=== PATIENT | female | born 1940 | race Caucasian/White ===

== ENCOUNTER 2018-06-20 06:38 | Emergency (ER) | payer MEDICARE, BC ==
--- NOTE | 2018-06-20 07:27 | EDM.PDOC ---
ED HPI GENERAL MEDICAL PROBLEM - General Chief Complaint: General Stated Complaint: DIZZY, HIGH BP Time Seen by Provider: 06/20/18 08:12 Source of Information: Reports: Patient History Limitations: Reports: No Limitations - History of Present Illness INITIAL COMMENTS - FREE TEXT/NARRATIVE: pt arrived with a history of feeling off bslance. She felt like she was going to fall. She did vomit after she got to the hosp. She did not have chest pain. She checked her bp at home and it was in the 190 range. She does have a history of hypertension. She had a urgent softer stool during the episode. She not have chills or a fever. She does have a past history of vertigo and this was not as extreme as that. Onset: Today, Sudden Duration: Hour(s): Location: Reports: Head Associated Symptoms: Reports: Weakness, Other (dizziness. ) - Related Data Allergies Allergy/AdvReac Type Severity Reaction Status Date / Time latex Allergy Rash Verified 06/20/18 07:36 levofloxacin [From Levaquin] Allergy Hives Verified 06/20/18 07:36 sulfamethoxazole Allergy Cannot Verified 06/20/18 07:36 [From Bactrim] Remember trimethoprim [From Bactrim] Allergy Cannot Verified 06/20/18 07:36 Remember Home Meds: Home Meds Losartan Potassium [Cozaar] 100 mg PO DAILY 11/30/13 [History] Rosuvastatin Calcium [Crestor] 5 mg PO BEDTIME 11/30/13 [History] metFORMIN HCl [Metformin HCl] 1,000 mg PO BID 11/30/13 [History] metroNIDAZOLE [metroNIDAZOLE 0.75% Cream] 1 dose TOP BID 11/30/13 [History] Aspirin 81 mg PO DAILY 06/20/18 [History] Atenolol 50 mg PO BID 06/20/18 [History] Levothyroxine 112 mcg PO DAILY 06/20/18 [History] Nystatin 100,000 dose PO QID 06/20/18 [History] Timolol [Betimol 0.5% Ophth Soln] 1 ampule EYEBOTH ASDIRECTED 06/20/18 [History] Triamcinolone Acetonide [Triamcinolone Acetonide 0.1% Crm] 1 applic TOP BID [History] ED ROS GENERAL - Review of Systems Review Of Systems: See Below Constitutional: Reports: No Symptoms HEENT: Reports: No Symptoms Respiratory: Reports: No Symptoms Cardiovascular: Reports: Other (pt did not have chest pain. She felt like her heartbeat was weak. ) Endocrine: Reports: No Symptoms GI/Abdominal: Reports: Nausea, Vomiting : Reports: No Symptoms Musculoskeletal: Reports: No Symptoms Skin: Reports: No Symptoms ED EXAM, GENERAL - Physical Exam Exam: See Below Free Text/Narrative:: pt is a very anxious pt who was feeluing dizzy and her bp is quite elevated. Exam Limited By: No Limitations General Appearance: Alert, No Apparent Distress, Anxious, Other (pupils are equal and reactive. ) Ears: Normal TMs Nose: Normal Inspection Throat/Mouth: Normal Inspection Head: Atraumatic Neck: Normal Inspection Respiratory/Chest: No Respiratory Distress Cardiovascular: Regular Rate, Rhythm, Other (rate is 60. ) GI/Abdominal: Soft, Non-Tender (Female) Exam: Deferred Rectal (Female) Exam: Deferred Back Exam: Normal Inspection Extremities: Normal Inspection Neurological: Alert, Oriented, Normal Cognition, Other (no lateralizing signs. ) Psychiatric: Anxious Course - Vital Signs Last Recorded V/S: Last Vital Signs Temp 35.8 C 06/20/18 07:33 Pulse 60 06/20/18 08:31 Resp 14 06/20/18 08:31 BP 166/69 H 06/20/18 08:31 Pulse Ox 97 06/20/18 08:31 - Orders/Labs/Meds Orders: Active Orders 24 hr Category Date Time Status EKG Documentation Completion [RC] ASDIRECTED Care 06/20/18 08:29 Ordered Sodium Chloride 0.9% [Normal Saline] 1,000 ml Med 06/20/18 08:15 Active IV ASDIRECTED EKG 12 Lead [EK] Routine Ther 06/20/18 08:29 Ordered Medication Orders Sodium Chloride (Normal Saline) 1,000 mls @ 999 mls/hr IV ASDIRECTED AVE Labs: Laboratory Tests 06/20/18 06/20/18 06/20/18 Range/Units 07:48 07:49 07:49 WBC 7.7 (4.5-11.0) K/uL RBC 4.76 (3.30-5.50) M/uL Hgb 13.6 (12.0-15.0) g/dL Hct 40.8 (36.0-48.0) % MCV 86 (80-98) fL MCH 29 (27-31) pg MCHC 33 (32-36) % Plt Count 180 (150-400) K/uL Neut % (Auto) 77 H (36-66) % Lymph % (Auto) 15 L (24-44) % [place] % (Auto) 6 (2-6) % Eos % (Auto) 1 L (2-4) % Baso % (Auto) 1 (0-1) % Sodium (140-148) mmol/L Potassium (3.6-5.2) mmol/L Chloride (100-108) mmol/L Carbon Dioxide (21-32) mmol/L Anion Gap (5.0-14.0) mmol/L BUN (7-18) mg/dL Creatinine (0.6-1.0) mg/dL Est Cr Clr Drug Dosing mL/min Estimated GFR (MDRD) (>60) Glucose (74-106) mg/dL Calcium (8.5-10.1) mg/dL Total Bilirubin (0.2-1.0) mg/dL AST (15-37) U/L ALT (12-78) U/L Alkaline Phosphatase (46-116) U/L Troponin I (0.000-0.056) ng/mL Total Protein (6.4-8.2) g/dL Albumin (3.4-5.0) g/dL Globulin (2.3-3.5) g/dL Albumin/Globulin Ratio (1.2-2.2) TSH, Ultra Sensitive 2.408 (0.358-3.740) uIU/mL Urine Color Yellow Urine Appearance Slightly cloudy Urine pH 8.0 (4.5-8.0) Ur Specific [place] 1.015 (1.008-1.030) Urine Protein Negative (NEGATIVE) mg/dL Urine Glucose (UA) 50 H (NEGATIVE) mg/dL Urine Ketones Negative (NEGATIVE) mg/dL Urine Occult Blood Negative (NEGATIVE) Urine Nitrite Negative (NEGATIVE) Urine Bilirubin Negative (NEGATIVE) Urine Urobilinogen Normal (NORMAL) mg/dL Ur Leukocyte Esterase Negative (NEGATIVE) Urine RBC Not seen (0-5) Urine WBC Not seen (0-5) Ur Epithelial Cells Not seen Amorphous Sediment Moderate Urine Bacteria Not seen Urine Mucus Not seen 06/20/18 06/20/18 Range/Units 07:49 08:29 WBC (4.5-11.0) K/uL RBC (3.30-5.50) M/uL Hgb (12.0-15.0) g/dL Hct (36.0-48.0) % MCV (80-98) fL MCH (27-31) pg MCHC (32-36) % Plt Count (150-400) K/uL Neut % (Auto) (36-66) % Lymph % (Auto) (24-44) % [place] % (Auto) (2-6) % Eos % (Auto) (2-4) % Baso % (Auto) (0-1) % Sodium 133 L (140-148) mmol/L Potassium 4.3 (3.6-5.2) mmol/L Chloride 98 L (100-108) mmol/L Carbon Dioxide 26 (21-32) mmol/L Anion Gap 13.3 (5.0-14.0) mmol/L BUN 12 (7-18) mg/dL Creatinine 1.0 (0.6-1.0) mg/dL Est Cr Clr Drug Dosing 38.72 mL/min Estimated GFR (MDRD) 54 L (>60) Glucose 196 H (74-106) mg/dL Calcium 9.0 (8.5-10.1) mg/dL Total Bilirubin 0.4 (0.2-1.0) mg/dL AST 18 (15-37) U/L ALT 18 (12-78) U/L Alkaline Phosphatase 65 (46-116) U/L Troponin I < 0.017 (0.000-0.056) ng/mL Total Protein 7.2 (6.4-8.2) g/dL Albumin 3.8 (3.4-5.0) g/dL Globulin 3.4 (2.3-3.5) g/dL Albumin/Globulin Ratio 1.1 L (1.2-2.2) TSH, Ultra Sensitive (0.358-3.740) uIU/mL Urine Color Urine Appearance Urine pH (4.5-8.0) Ur Specific [place] (1.008-1.030) Urine Protein (NEGATIVE) mg/dL Urine Glucose (UA) (NEGATIVE) mg/dL Urine Ketones (NEGATIVE) mg/dL Urine Occult Blood (NEGATIVE) Urine Nitrite (NEGATIVE) Urine Bilirubin (NEGATIVE) Urine Urobilinogen (NORMAL) mg/dL Ur Leukocyte Esterase (NEGATIVE) Urine RBC (0-5) Urine WBC (0-5) Ur Epithelial Cells Amorphous Sediment Urine Bacteria Urine Mucus Meds: Medications Generic Name Dose Route Start Last Admin Trade Name Margaret PRN Reason Stop Dose Admin Sodium Chloride 1,000 mls @ 999 mls/hr 06/20/18 08:[address] Sal[address] IV [address] A[address] Discontinued Medications Generic Name Dose Route Start Last Admin Trade Name Margaret PRN Reason Stop Dose Admin Meclizine HCl 25 mg 06/20/18 08:10 06/20/18 08:30 Antivert PO 06/20/18 08:11 25 mg ONETIME ONE Administration Ondansetron HCl 4 mg 06/20/18 08:10 06/20/18 08:30 Zofran IVPUSH 06/20/18 08:11 Not Given ONETIME ONE - Re-Assessments/Exams Free Text/Narrative Re-Assessment/Exam: 06/20/18 09:14 ekg and trop was normal. Her other lab was normal other than a elevated bs. Departure - Departure Time of Disposition: 09:09 Disposition: Home, Self-Care 01 Condition: Fair Clinical Impression: Vertigo, Hypertension - Discharge Information Referrals: Ellis Becerra MD [Primary Care Provider] - Forms: ED Department Discharge Care Plan Goals: continue same meds, push fluids, low activity for the next 2 days. - My Orders Last 24 Hours: My Active Orders 06/20/18 08:15 Sodium Chloride 0.9% [Normal Saline] 1,000 ml IV ASDIRECTED 06/20/18 08:29 EKG Documentation Completion [RC] ASDIRECTED EKG 12 Lead [EK] Routine - Assessment/Plan Last 24 Hours: My Active Orders 06/20/18 08:15 Sodium Chloride 0.9% [Normal Saline] 1,000 ml IV ASDIRECTED 06/20/18 08:29 EKG Documentation Completion [RC] ASDIRECTED EKG 12 Lead [EK] Routine
[2018-06-20] MEDS ORDERED: Ondansetron 4 MG/2 ML SDV IVPUSH ONE (08:10)
[2018-06-20] MEDS ORDERED: Meclizine 25 MG Tab PO ONE (08:10)
[2018-06-20] MEDS ORDERED: Sodium Chloride 0.9% 1,000 ML IV SCH (08:15)
[2018-06-20 09:17] VITALS: BP 164/67
== END 2018-06-20 09:43 | disposition home or self-care (01) ==
LOC: JP.ED 06:38
DX: I10 Essential (primary) hypertension (principal); Z88.1 Allergy status to other antibiotic agents; Z88.2 Allergy status to sulfonamides; Z91.040 Latex allergy status; Z88.8 Allergy status to other drugs, medicaments and biological substances
CPT/HCPCS: 36415; 80053; 81001; 84443; 84484; 85025; 93005; 93010; 99284; A9270

== ENCOUNTER 2020-05-14 23:25 | Observation (INO) | payer MEDICARE, BC ==
[2020-05-14] MEDS ORDERED: Diltiazem 100 MG in Sodium Chloride 0.9% 100 ML IV SCH (23:45)
[2020-05-14] MEDS ORDERED: Diltiazem 25 MG/5 ML SDV IVPUSH ONE (23:58)
--- NOTE | 2020-05-15 00:02 | EDM.PDOC ---
ED HPI GENERAL MEDICAL PROBLEM - General Chief Complaint: Cardiovascular Problem Stated Complaint: A-FIB? Time Seen by Provider: 05/14/20 23:46 Source of Information: Reports: Patient, Family, RN Notes Reviewed History Limitations: Reports: No Limitations - History of Present Illness INITIAL COMMENTS - FREE TEXT/NARRATIVE: 80-year-old female presents emergency department with a complaint of palpitations, she is confident her palpitations started about 1 hour prior to presentation emergency department it woke her from sleep. Does have a known history of paroxysmal atrial fibrillation usually controlled with medications. Last episode was in 2013 she is never been cardioverted electrically but was chemically cardioverted at that time. She does not take a blood thinner other than aspirin the initial insult of the atrial fibrillation was thought to be related to hyperthyroidism. She denies any nausea vomiting shortness of breath chest pain no diaphoresis - Related Data Allergies Allergy/AdvReac Type Severity Reaction Status Date / Time latex Allergy Rash Verified 05/14/20 23:38 levofloxacin [From Levaquin] Allergy Hives Verified 05/14/20 23:38 sulfamethoxazole Allergy Cannot Verified 05/14/20 23:38 [From Bactrim] Remember trimethoprim [From Bactrim] Allergy Cannot Verified 05/14/20 23:38 Remember Home Meds: Home Meds Losartan Potassium [Cozaar] 100 mg PO DAILY 11/30/13 [History] Rosuvastatin Calcium [Crestor] 5 mg PO BEDTIME 11/30/13 [History] metFORMIN HCl [Metformin HCl] 1,000 mg PO BID 11/30/13 [History] metroNIDAZOLE [metroNIDAZOLE 0.75% Cream] 1 dose TOP BID 11/30/13 [History] Aspirin 81 mg PO DAILY 06/20/18 [History] Levothyroxine 112 mcg PO DAILY 06/20/18 [History] Nystatin 100,000 dose PO QID 06/20/18 [History] Timolol [Betimol 0.5% Ophth Soln] 1 ampule EYEBOTH ASDIRECTED 06/20/18 [History] atenoloL [Atenolol] 50 mg PO BID 06/20/18 [History] Past Medical History HEENT History: Reports: Cataract, Impaired Vision Cardiovascular History: Reports: Afib, High Cholesterol, Hypertension Gastrointestinal History: Reports: Other (See Below) Other Gastrointestinal History: H pylori Musculoskeletal History: Reports: Arthritis, Fracture Psychiatric History: Reports: Anxiety Endocrine/Metabolic History: Reports: Diabetes, Type II, Hypothyroidism, Other (See Below) Other Endocrine/Metabolic History: 05/12/2017 A1C 6.6 Dermatologic History: Reports: Other (See Below) Other Dermatologic History: rosacea - Infectious Disease History Infectious Disease History: Reports: C-Difficile, Measles, Mumps - Past Surgical History GI Surgical History: Reports: Appendectomy Endocrine Surgical History: Reports: Thyroidectomy Social & Family History - Tobacco Use Tobacco Use Status *Q: Never Tobacco User - Caffeine Use Caffeine Use: Reports: Coffee, Soda - Recreational Drug Use Recreational Drug Use: No ED ROS GENERAL - Review of Systems Review Of Systems: See Below Constitutional: Reports: No Symptoms HEENT: Reports: No Symptoms Respiratory: Reports: No Symptoms Cardiovascular: Reports: Palpitations GI/Abdominal: Reports: No Symptoms ED EXAM, GENERAL - Physical Exam Exam: See Below Exam Limited By: No Limitations General Appearance: Alert, WD/WN, No Apparent Distress Respiratory/Chest: No Respiratory Distress, Lungs Clear, Normal Breath Sounds, No Accessory Muscle Use, Chest Non-Tender Cardiovascular: Irregularly Irregular GI/Abdominal: Soft, Non-Tender Course - Vital Signs Last Recorded V/S: Last Vital Signs Temp 97.3 F 05/14/20 23:36 Pulse 70 05/15/20 00:56 Resp 18 05/14/20 23:36 BP 124/67 05/15/20 00:56 Pulse Ox 100 05/14/20 23:36 - Orders/Labs/Meds Orders: Active Orders 24 hr Category Date Time Status Cardiac Monitoring [RC] .As Directed Care 05/14/20 23:57 Active EKG Documentation Completion [RC] ASDIRECTED Care 05/14/20 23:58 Active Peripheral IV Care [RC] . DIRECTED Care 05/14/20 23:58 Active Diltiazem [Cardizem] 100 mg Med 05/14/20 23:45 Active Sodium Chloride 0.9% [Normal Saline] 100 ml IV TITRATE Sodium Chloride 0.9% [Saline Flush] Med 05/14/20 23:57 Active 10 ml FLUSH ASDIRECTED PRN Peripheral IV Insertion Adult [OM.PC] Stat Oth 05/14/20 23:57 Ordered Saline Lock Insert [OM.PC] Stat Oth 05/14/20 23:57 Ordered EKG 12 Lead [EK] Stat Ther 05/14/20 23:57 Ordered Medication Orders Diltiazem HCl 100 mg/ Sodium (Chloride) 100 mls @ 5 mls/hr IV TITRATE AVE; Protocol Last Admin: 05/15/20 00:42 Dose: 5 mg/hr, 5 mls/hr Documented by: ITA Sodium Chloride (Sodium Chloride 0.9% 10 Ml Syringe) 10 ml FLUSH ASDIRECTED PRN PRN Reason: Keep Vein Open Last Admin: 05/15/20 00:08 Dose: 10 ml Documented by: ITA Labs: Laboratory Tests 05/14/20 05/14/20 05/14/20 Range/Units 00:05 00:05 00:05 WBC 7.2 (4.5-11.0) K/uL RBC 5.08 (3.30-5.50) M/uL Hgb 14.4 (12.0-15.0) g/dL Hct 43.7 (36.0-48.0) % MCV 86 (80-98) fL MCH 28 (27-31) pg MCHC 33 (32-36) % Plt Count 194 (150-400) K/uL Neut % (Auto) 51 (36-66) % Lymph % (Auto) 38 (24-44) % [place] % (Auto) 9 H (2-6) % Eos % (Auto) 2 (2-4) % Baso % (Auto) 1 (0-1) % Sodium 136 L (140-148) mmol/L Potassium 3.7 (3.6-5.2) mmol/L Chloride 97 L (100-108) mmol/L Carbon Dioxide 26 (21-32) mmol/L Anion Gap 16.7 H (5.0-14.0) mmol/L BUN 13 (7-18) mg/dL Creatinine 1.0 (0.6-1.0) mg/dL Est Cr Clr Drug Dosing 38.35 mL/min Estimated GFR (MDRD) 54 L (>60) Glucose 123 H (74-106) mg/dL Calcium 9.4 (8.5-10.1) mg/dL Total Bilirubin 0.3 (0.2-1.0) mg/dL AST 17 (15-37) U/L ALT 19 (12-78) U/L Alkaline Phosphatase 64 (46-116) U/L Troponin I < 0.017 (0.000-0.056) ng/mL Total Protein 7.4 (6.4-8.2) g/dL Albumin 4.2 (3.4-5.0) g/dL Globulin 3.2 (2.3-3.5) g/dL Albumin/Globulin Ratio 1.3 (1.2-2.2) TSH, Ultra Sensitive 8.194 H (0.358-3.740) uIU/mL Meds: Medications Generic Name Dose Route Start Last Admin Trade Name Freq PRN Reason Stop Dose Admin Diltiazem HCl 100 mg/ Sodium 100 mls @ 5 mls/hr 05/14/20 23:45 05/15/20 00:42 Chloride IV 5 mg/hr TITRATE AVE 5 mls/hr Administration Protocol 5 MG/HR Sodium Chloride 10 ml 05/14/20 23:57 05/15/20 00:08 Sodium Chloride 0.9% 10 Ml Syringe FLUSH 10 ml ASDIRECTED PRN Administration Keep Vein Open Discontinued Medications Generic Name Dose Route Start Last Admin Trade Name Freq PRN Reason Stop Dose Admin Diltiazem HCl 16 mg 05/14/20 23:58 05/15/20 00:08 Diltiazem 25 Mg/5 Ml Sdv IVPUSH 05/14/20 23:59 16 mg ONETIME ONE Administration Departure - Departure Time of Disposition: 01:46 Disposition: Admitted As Inpatient 68 Condition: Fair Clinical Impression: Atrial fibrillation Qualifiers: Atrial fibrillation type: paroxysmal Qualified Code(s): I48.0 - Paroxysmal atrial fibrillation Referrals: Ellis Becerra MD [Primary Care Provider] - Forms: ED Department Discharge Sepsis Event Note (ED) - Evaluation Sepsis Screening Result: No Definite Risk - Focused Exam Vital Signs: Vital Signs Temp Pulse Resp BP Pulse Ox 05/15/20 00:56 70 124/67 05/15/20 00:33 68 132/74 05/15/20 00:23 92 119/74 05/15/20 00:19 77 128/57 L 05/15/20 00:14 70 98/60 05/15/20 00:11 114 H 178/91 H 05/14/20 23:36 97.3 F 103 H 18 179/86 H 100 - My Orders Last 24 Hours: My Active Orders 05/14/20 23:45 Diltiazem [Cardizem] 100 mg Sodium Chloride 0.9% [Normal Saline] 100 ml IV TITRATE 05/14/20 23:57 Cardiac Monitoring [RC] .As Directed Sodium Chloride 0.9% [Saline Flush] 10 ml FLUSH ASDIRECTED PRN Peripheral IV Insertion Adult [OM.PC] Stat Saline Lock Insert [OM.PC] Stat EKG 12 Lead [EK] Stat 05/14/20 23:58 EKG Documentation Completion [RC] ASDIRECTED Peripheral IV Care [RC] . DIRECTED - Assessment/Plan Last 24 Hours: My Active Orders 05/14/20 23:45 Diltiazem [Cardizem] 100 mg Sodium Chloride 0.9% [Normal Saline] 100 ml IV TITRATE 05/14/20 23:57 Cardiac Monitoring [RC] .As Directed Sodium Chloride 0.9% [Saline Flush] 10 ml FLUSH ASDIRECTED PRN Peripheral IV Insertion Adult [OM.PC] Stat Saline Lock Insert [OM.PC] Stat EKG 12 Lead [EK] Stat 05/14/20 23:58 EKG Documentation Completion [RC] ASDIRECTED Peripheral IV Care [RC] . DIRECTED Plan: Assessment Acuity = acute Site and laterality = paroxysmal atrial fibrillation Etiology = unknown Manifestations = palpitations Location of injury = Home Lab values = CBC CMP troponin within normal limits TSH is elevated at 8.194 consistent with hypothyroidism of suboptimal control Plan Did try Cardizem push with drip in the emergency department this did slow her rate down to 110 or less she still will fluctuate down to 16 still remains in atrial fibrillation. I offered her electrocardioversion because of the recent onset of the atrial fibrillation at 2300 on 05-14, she declined. I did contact hospitalist service at 145 kindly agreed to come and evaluate the patient emergency department for admission. Her [id number] 2 score is 5 she would be a candidate for anticoagulation due to her high risk of stroke This note was dictated using [employer] voice recognition software please call with any questions on syntax or grammar.
[2020-05-15] MEDS: Sodium Chloride 0.9% 10 ML Syringe FLUSH PRN ×2 (00:08→03:30)
--- NOTE | 2020-05-15 02:52 | PCM.HP.2 ---
H&P History of Present Illness - General Date of Service: 05/15/20 Admit Problem/Dx: Admission Diagnosis/Problem Admission Diagnosis/Problem Paroxysmal atrial fibrillation with rapid ventricular response Source of Information: Patient, Provider History Limitations: Reports: No Limitations - History of Present Illness Initial Comments - Free Text/Narative: CC: I'm in afib HPI: Lady presents to the emergency room today with palpitations that started around 11 PM on May 14. She has been feeling well recently with no recent difficulties. Tonight after going to bed she woke up with a sensation that her heart was beating fast and beating irregularly. There was no associated chest pain, shortness of breath, nausea or diaphoresis. This felt very similar to her previous episode of atrial fibrillation so she came in for evaluation. She has not had recent cough or shortness of breath. No recent fevers or chills. Appetite and weight have been stable. No recent diarrhea. She walks 1 to 1.5 miles daily and does not have any limitations such as dyspnea or chest pain. She is not taking any new medications. Her last episode of atrial fibrillation was about 6 years ago. Work-up in the emergency room revealed atrial fibrillation with a rapid ventricular response. Laboratory studies are unremarkable. EKG does not show ischemia. She has been started on a diltiazem infusion and the plan is observation admission for further management. - Related Data Allergies/Adverse Reactions: Allergies Allergy/AdvReac Type Severity Reaction Status Date / Time latex Allergy Rash Verified 05/14/20 23:38 levofloxacin [From Levaquin] Allergy Hives Verified 05/14/20 23:38 sulfamethoxazole Allergy Cannot Verified 05/14/20 23:38 [From Bactrim] Remember trimethoprim [From Bactrim] Allergy Cannot Verified 05/14/20 23:38 Remember Home Medications: Home Meds Losartan Potassium [Cozaar] 100 mg PO DAILY 11/30/13 [History] Rosuvastatin Calcium [Crestor] 5 mg PO BEDTIME 11/30/13 [History] metFORMIN HCl [Metformin HCl] 1,000 mg PO BID 11/30/13 [History] metroNIDAZOLE [metroNIDAZOLE 0.75% Cream] 1 dose TOP BID 11/30/13 [History] Aspirin 81 mg PO DAILY 06/20/18 [History] Levothyroxine 112 mcg PO DAILY 06/20/18 [History] Nystatin 100,000 dose PO QID 06/20/18 [History] Timolol [Betimol 0.5% Ophth Soln] 1 ampule EYEBOTH ASDIRECTED 06/20/18 [History] atenoloL [Atenolol] 50 mg PO BID 06/20/18 [History] Past Medical History HEENT History: Reports: Cataract, Impaired Vision Cardiovascular History: Reports: Afib, High Cholesterol, Hypertension Gastrointestinal History: Reports: Other (See Below) Other Gastrointestinal History: H pylori Musculoskeletal History: Reports: Arthritis, Fracture Psychiatric History: Reports: Anxiety Endocrine/Metabolic History: Reports: Diabetes, Type II, Hypothyroidism, Other (See Below) Other Endocrine/Metabolic History: 05/12/2017 A1C 6.6 Dermatologic History: Reports: Other (See Below) Other Dermatologic History: rosacea - Infectious Disease History Infectious Disease History: Reports: C-Difficile, Measles, Mumps - Past Surgical History GI Surgical History: Reports: Appendectomy Endocrine Surgical History: Reports: Thyroidectomy Social & Family History - Family History Endocrine/Metabolic: Reports: Diabetes, type II - Tobacco Use Tobacco Use Status *Q: Never Tobacco User - Caffeine Use Caffeine Use: Reports: Coffee, Soda - Recreational Drug Use Recreational Drug Use: No H&P Review of Systems - Review of Systems: Review Of Systems: See Below Free Text/Narrative: A complete 12 point review of systems was obtained. Pertinent positives and negatives are noted in the history of present illness. All other systems were reviewed and were negative except as noted. Exam - Exam Exam: See Below - Vital Signs Vital Signs: Last Vital Signs Temp 36.3 C 05/14/20 23:36 Pulse 64 05/15/20 02:37 Resp 16 05/15/20 02:37 BP 141/81 H 05/15/20 02:37 Pulse Ox 100 05/15/20 02:37 Weight: 64.41 kg - Exam Quality Assessment: No: Supplemental Oxygen General: Alert, Oriented, Cooperative. No: Mild Distress HEENT: Conjunctiva Clear, Mucosa Moist & [place]. No: Scleral Icterus Neck: Supple, Trachea Midline Lungs: Clear to Auscultation, Normal Respiratory Effort Cardiovascular: Regular Rate, Irregular Rhythm. No: Systolic Murmur, Gallop/S3 GI/Abdominal Exam: Normal Bowel Sounds, Soft, Non-Tender, No Distention Back Exam: Normal Inspection, Full Range of Motion Extremities: No Pedal Edema. No: Increased Warmth Peripheral Pulses: 2+: Dorsalis Pedis (L), Dorsalis Pedis (R) Skin: Warm, Dry Neuro Extensive - Mental Status: Alert, Oriented x3, Nl Response to Commands Neuro Extensive - Motor, Sensory, Reflexes: No: Dysarthria, Abnormal Motor, Tremor Psychiatric: Alert, Normal Affect - Patient Data Lab Results Last 24 hrs: Laboratory Results - last 24 hr 05/14/20 05/14/20 05/14/20 Range/Units 00:05 00:05 00:05 WBC 7.2 (4.5-11.0) K/uL RBC 5.08 (3.30-5.50) M/uL Hgb 14.4 (12.0-15.0) g/dL Hct 43.7 (36.0-48.0) % MCV 86 (80-98) fL MCH 28 (27-31) pg MCHC 33 (32-36) % Plt Count 194 (150-400) K/uL Neut % (Auto) 51 (36-66) % Lymph % (Auto) 38 (24-44) % [place]auf[place] % (Auto) 9 H (2-6) % Eos % (Auto) 2 (2-4) % Baso % (Auto) 1 (0-1) % Sodium 136 L (140-148) mmol/L Potassium 3.7 (3.6-5.2) mmol/L Chloride 97 L (100-108) mmol/L Carbon Dioxide 26 (21-32) mmol/L Anion Gap 16.7 H (5.0-14.0) mmol/L BUN 13 (7-18) mg/dL Creatinine 1.0 (0.6-1.0) mg/dL Est Cr Clr Drug Dosing 38.35 mL/min Estimated GFR (MDRD) 54 L (>60) Glucose 123 H (74-106) mg/dL Calcium 9.4 (8.5-10.1) mg/dL Total Bilirubin 0.3 (0.2-1.0) mg/dL AST 17 (15-37) U/L ALT 19 (12-78) U/L Alkaline Phosphatase 64 (46-116) U/L Troponin I < 0.017 (0.000-0.056) ng/mL Total Protein 7.4 (6.4-8.2) g/dL Albumin 4.2 (3.4-5.0) g/dL Globulin 3.2 (2.3-3.5) g/dL Albumin/Globulin Ratio 1.3 (1.2-2.2) Free T4 (0.76-1.46) ng/dL TSH, Ultra Sensitive 8.194 H (0.358-3.740) uIU/mL 05/15/20 Range/Units 02:12 WBC (4.5-11.0) K/uL RBC (3.30-5.50) M/uL Hgb (12.0-15.0) g/dL Hct (36.0-48.0) % MCV (80-98) fL MCH (27-31) pg MCHC (32-36) % Plt Count (150-400) K/uL Neut % (Auto) (36-66) % Lymph % (Auto) (24-44) % [place] % (Auto) (2-6) % Eos % (Auto) (2-4) % Baso % (Auto) (0-1) % Sodium (140-148) mmol/L Potassium (3.6-5.2) mmol/L Chloride (100-108) mmol/L Carbon Dioxide (21-32) mmol/L Anion Gap (5.0-14.0) mmol/L BUN (7-18) mg/dL Creatinine (0.6-1.0) mg/dL Est Cr Clr Drug Dosing mL/min Estimated GFR (MDRD) (>60) Glucose (74-106) mg/dL Calcium (8.5-10.1) mg/dL Total Bilirubin (0.2-1.0) mg/dL AST (15-37) U/L ALT (12-78) U/L Alkaline Phosphatase (46-116) U/L Troponin I (0.000-0.056) ng/mL Total Protein (6.4-8.2) g/dL Albumin (3.4-5.0) g/dL Globulin (2.3-3.5) g/dL Albumin/Globulin Ratio (1.2-2.2) Free T4 1.21 (0.76-1.46) ng/dL TSH, Ultra Sensitive (0.358-3.740) uIU/mL Result Diagrams: 05/14/20 00:05 05/14/20 00:05 #1 Interpretation EKG Date: 05/15/20 Rhythm: A-Fib Rate (Beats/Min): 100 [place]: Normal P-Wave: Variable QRS: Normal ST-T: Normal QT: Normal Comparison: Change From Previous EKG EKG Interpretation Comments: I personally reviewed this EKG image in the ER Sepsis Event Note - Evaluation Sepsis Screening Result: No Definite Risk - Focused Exam Vital Signs: Vital Signs Temp Pulse Resp BP Pulse Ox 05/15/20 02:37 64 16 141/81 H 100 05/15/20 02:22 69 133/90 05/15/20 01:52 110 H 138/86 05/15/20 01:37 103 H 144/88 H 05/15/20 01:22 69 136/69 05/15/20 00:56 70 124/67 05/15/20 00:33 68 132/74 05/15/20 00:23 92 119/74 05/15/20 00:19 77 128/57 L 05/15/20 00:14 70 98/60 05/15/20 00:11 114 H 178/91 H 05/14/20 23:36 36.3 C 103 H 18 179/86 H 100 *Q Meaningful Use (ADM) - VTE Risk Assess *Q Each Risk Factor Represents 1 Point: None Total Score 1 Point Risk Factors: 0 Each Risk Factor Represents 2 Points: None Total Score 2 Point Risk Factors: 0 Each Risk Factor Represents 3 Points: Age 75 Years or Greater Total Score 3 Point Risk Factors: 3 Each Risk Factor Represents 5 Points: None Total Score 5 Point Risk Factors: 0 Venous Thromboembolism Risk Factor Score *Q: 3 - Problem List (1) Paroxysmal atrial fibrillation with rapid ventricular response SNOMED Code(s): 928738193, 387763235932391 ICD Code: I48.0 - PAROXYSMAL ATRIAL FIBRILLATION Status: Acute Current Visit: Yes (2) DM II (diabetes mellitus, type II), controlled SNOMED Code(s): 70035699, 300709315 ICD Code: E11.9 - TYPE 2 DIABETES MELLITUS WITHOUT COMPLICATIONS Status: Chronic Current Visit: Yes Qualifiers: Diabetes mellitus intermediate manager insulin use: without intermediate manager use Diabetes mellitus complication status: without complication Qualified Code(s): E11.9 - Type 2 diabetes mellitus without complications (3) Hypertension SNOMED Code(s): 93126570 ICD Code: I10 - ESSENTIAL (PRIMARY) HYPERTENSION Status: Chronic Current Visit: No Qualifiers: Hypertension type: essential hypertension Qualified Code(s): I10 - Essential (primary) hypertension (4) Acquired hypothyroidism SNOMED Code(s): 523660350 ICD Code: E03.9 - HYPOTHYROIDISM, UNSPECIFIED Status: Chronic Current Visit: Yes Problem List Initiated/Reviewed/Updated: Yes Orders Last 24hrs: Active Orders 24 hr Category Date Time Status Patient Status Manage Transfer [TRANSFER] Routine ADT 05/15/20 02:44 Ordered Cardiac Monitoring [RC] .As Directed Care 05/14/20 23:57 Active EKG Documentation Completion [RC] ASDIRECTED Care 05/14/20 23:58 Active Peripheral IV Care [RC] . DIRECTED Care 05/14/20 23:58 Active Diltiazem [Cardizem] 100 mg Med 05/14/20 23:45 Active Sodium Chloride 0.9% [Normal Saline] 100 ml IV TITRATE Sodium Chloride 0.9% [Saline Flush] Med 05/14/20 23:57 Active 10 ml FLUSH ASDIRECTED PRN Peripheral IV Insertion Adult [OM.PC] Stat Oth 05/14/20 23:57 Ordered Saline Lock Insert [OM.PC] Stat Oth 05/14/20 23:57 Ordered Resuscitation Status Routine Resus Stat 05/15/20 02:46 Ordered EKG 12 Lead [EK] Stat Ther 05/14/20 23:57 Ordered Medication Orders Diltiazem HCl 100 mg/ Sodium (Chloride) 100 mls @ 5 mls/hr IV TITRATE AVE; Protocol Last Titration: 05/15/20 02:19 Dose: 10 mg/hr, 10 mls/hr Documented by: Titration: 05/15/20 01:46 Dose: 7 mg/hr, 7 mls/hr Documented by: Admin: 05/15/20 00:42 Dose: 5 mg/hr, 5 mls/hr Documented by: ITA Sodium Chloride (Sodium Chloride 0.9% 10 Ml Syringe) 10 ml FLUSH ASDIRECTED PRN PRN Reason: Keep Vein Open Last Admin: 05/15/20 00:08 Dose: 10 ml Documented by: KRAUCRY Assessment/Plan Comment:: ASSESSMENT AND PLAN - Paroxysmal atrial fibrillation with rapid ventricular response-last episode was about 6 years ago and was associated with hyperthyroidism. No obvious trigger for this episode. She did convert in the emergency room while I was working on the admission. Her CHADSS-VASC score is 5 but given the very short duration I think we might be able to avoid anticoagulation at this point. If she has additional episodes she will definitely need anticoagulation. Echo in 2013 showed mild aortic insufficiency so it would be prudent to follow-up cardiac function and structure. Electrolytes are acceptable. -Wean diltiazem infusion over the next several hours -Cardiac monitoring -Echocardiogram in the morning -Continue beta-kit -Consider anticoagulation if she returns to atrial fibrillation Essential hypertension-blood pressure has been under good control as an outpatient. -Continue beta-kit and ARB, hold amlodipine while on diltiazem infusion Type 2 diabetes mellitus, controlled-most recent hemoglobin A1c was less than 6. -Continue home medications Acquired hypothyroidism-history of hyperthyroidism with radioiodine ablation. TSH elevated but free T4 is normal. -Continue home medications Maintenance issues - - DVT prophylaxis -mechanical - GI prophylaxis -not indicated - Nutrition -consistent carbohydrates - Albarran catheter -not indicated CODE STATUS -full code Admission justification -patient will be referred to observation status for initial cardiac monitoring and weaning the diltiazem infusion Disposition - I would anticipate discharge home in the morning Primary care physician -MD Kulwinder Pitts M.D. - Mortality Measure Prognosis:: Good
[2020-05-15] MEDS ORDERED: Acetaminophen 325 MG Tab PO PRN (03:02)
[2020-05-15] MEDS ORDERED: Magnesium Hydroxide 400 MG/5 ML Susp 30 ML Cup PO PRN (03:02)
[2020-05-15] MEDS ORDERED: Ondansetron 4 MG Tab.DIS PO PRN (03:02)
[2020-05-15] MEDS ORDERED: Ondansetron 4 MG/2 ML SDV IV PRN (03:02)
[2020-05-15] MEDS ORDERED: Levothyroxine 112 MCG Tab PO SCH (07:30)
[2020-05-15] MEDS ORDERED: METFORMIN 1000MG **PTOM PO SCH (08:00)
[2020-05-15] MEDS ORDERED: metFORMIN 500 MG Tab PO SCH (08:00)
[2020-05-15] MEDS ORDERED: LOSARTAN 100MG **PTOM PO SCH (09:00)
[2020-05-15] MEDS ORDERED: Losartan 50 MG Tab PO SCH (09:00)
[2020-05-15] MEDS ORDERED: Aspirin 81 MG Tab.EC **PTOM PO SCH (09:00)
[2020-05-15] MEDS ORDERED: Atenolol 25 MG Tab PO SCH (09:00)
[2020-05-15] MEDS ORDERED: ATENOLOL 50 MG PO SCH (09:00)
[2020-05-15] MEDS ORDERED: Timolol Maleate 0.5% Ophth Soln 5 ML Bottle EYEBOTH SCH (09:00)
[2020-05-15 10:08] VITALS: BP 188/80; PULSE 69
--- NOTE | 2020-05-15 11:28 | PCM.DCSUM1 ---
Discharge Summary - Hospital Course Brief History: 80-year-old female with history of hyperthyroidism status post radioiodine ablation, paroxysmal atrial fibrillation, type 2 diabetes and high blood pressure who presented with palpitations. She was admitted for management of paroxysmal atrial fibrillation with rapid ventricular response. Diagnosis: Stroke: No - Discharge Data Discharge Date: 05/15/20 Discharge Disposition: Home, Self-Care 01 Condition: Good - Referral to Home Health Primary Care Physician: Ellis Becerra MD - Discharge Diagnosis/Problem(s) (1) Paroxysmal atrial fibrillation with rapid ventricular response SNOMED Code(s): 259899231, [id number] ICD Code: I48.0 - PAROXYSMAL ATRIAL FIBRILLATION Status: Acute Current Visit: Yes (2) DM II (diabetes mellitus, type II), controlled SNOMED Code(s): 11796575, 985959091 ICD Code: E11.9 - TYPE 2 DIABETES MELLITUS WITHOUT COMPLICATIONS Status: Chronic Current Visit: Yes Qualifiers: Diabetes mellitus long term care social worker insulin use: without long term care social worker use Diabetes mellitus complication status: without complication Qualified Code(s): E11.9 - Type 2 diabetes mellitus without complications (3) Hypertension SNOMED Code(s): 80919541 ICD Code: I10 - ESSENTIAL (PRIMARY) HYPERTENSION Status: Chronic Current Visit: No Qualifiers: Hypertension type: essential hypertension Qualified Code(s): I10 - Essential (primary) hypertension (4) Acquired hypothyroidism SNOMED Code(s): 906552808 ICD Code: E03.9 - HYPOTHYROIDISM, UNSPECIFIED Status: Chronic Current Visit: Yes - Patient Summary/Data Hospital Course: Lady presented to the emergency room with palpitations that started shortly before arrival to the emergency room. Work-up in the emergency room revealed paroxysmal atrial fibrillation with heart rates in the 120-130 range. Laboratory studies were reassuring. EKG was nonischemic. She was given a bolus of diltiazem and started on an infusion. Cardioversion was discussed but the patient was not interested because the last time she had this episode she responded well to diltiazem. Shortly after admission to the hospital she converted to normal sinus rhythm. The diltiazem infusion was turned down and then turned off after she developed a mild bradycardia. She has remained in sinus rhythm since that time. She feels back to her usual self at this point. We did discuss anticoagulation but I think since the episode lasted only a few hours we can hold off starting anticoagulation at this time even though she does have an increased risk based on her CHADSS-VASC score. If she has additional episodes she would benefit from initiation of anticoagulation. She feels well and would like to go home today. I did not make any changes to her heart medications. Her TSH was elevated at more than 8 so we did increase her levothyroxine slightly. She has early follow-up scheduled. - Patient Instructions Diet: Regular Diet as Tolerated Activity: As Tolerated Showering/Bathing: May Shower Other/Special Instructions: 1. You were in the hospital for management of paroxysmal atrial fibrillation with a rapid ventricular response. Your heart return to a normal rhythm with the use of diltiazem. We have stopped this medication and your heart has remained in a normal rhythm. I do not recommend any changes to your heart medications at this time. Because the episode only lasted a few hours I do not think that we need to initiate anticoagulation at this time. If you do have additional episodes of atrial fibrillation we should consider this given your elevated risk for stroke (type 2 diabetes mellitus, high blood pressure and being a woman over age 75. 2. Your TSH was elevated at more than 8. This suggests suboptimal thyroid replacement. I recommend that we increase your dose to 112 mcg. A new prescription has been sent to [facility]. 3. Continue your other home medications as previously prescribed. 4. Follow up with Dr. Becerra as scheduled or sooner if needed. - Discharge Plan *PRESCRIPTION DRUG MONITORING PROGRAM REVIEWED*: Not Applicable *COPY OF PRESCRIPTION DRUG MONITORING REPORT IN PATIENT LANCE: Not Applicable Prescriptions/Med Rec: Levothyroxine Sodium [Levothyroxine] 112 mcg PO ACBREAKFAST #90 capsule Home Medications: Home Meds Losartan Potassium [Cozaar] 100 mg PO DAILY 11/30/13 [History] Rosuvastatin Calcium [Crestor] 5 mg PO BEDTIME 11/30/13 [History] metFORMIN HCl [Metformin HCl] 1,000 mg PO BIDAC 11/30/13 [History] metroNIDAZOLE [metroNIDAZOLE 0.75% Cream] 1 dose TOP BID 11/30/13 [History] Aspirin 81 mg PO DAILY 06/20/18 [History] atenoloL [Atenolol] 50 mg PO BID 06/20/18 [History] Levothyroxine Sodium [Levothyroxine] 112 mcg PO ACBREAKFAST #90 capsule 05/15/20 [Rx] Timolol Maleate/PF [Timolol Maleate 0.5% Eye Drop] 1 drop EYEBOTH DAILY 05/15/20 [History] amLODIPine [Norvasc] 2.5 mg PO DAILY 05/15/20 [History] Oxygen Therapy Mode: Room Air Patient Handouts: Atrial Fibrillation Referrals: Ellis Becerra MD [Primary Care Provider] - 05/21/20 1:30 pm (Please arrive 15 minutes early to register for your appointment.) - Discharge Summary/Plan Comment DC Time >30 min.: No - Patient Data Vitals - Most Recent: Last Vital Signs Temp 36.4 C 05/15/20 08:00 Pulse 69 05/15/20 10:00 Resp 14 05/15/20 10:00 BP 188/80 H 05/15/20 10:00 Pulse Ox 14 L 05/15/20 10:00 Weight - Most Recent: 63.049 kg Lab Results - Last 24 hrs: Laboratory Results - last 24 hr 05/14/20 05/14/20 05/14/20 Range/Units 00:05 00:05 00:05 WBC 7.2 (4.5-11.0) K/uL RBC 5.08 (3.30-5.50) M/uL Hgb 14.4 (12.0-15.0) g/dL Hct 43.7 (36.0-48.0) % MCV 86 (80-98) fL MCH 28 (27-31) pg MCHC 33 (32-36) % Plt Count 194 (150-400) K/uL Neut % (Auto) 51 (36-66) % Lymph % (Auto) 38 (24-44) % [place] % (Auto) 9 H (2-6) % Eos % (Auto) 2 (2-4) % Baso % (Auto) 1 (0-1) % Sodium 136 L (140-148) mmol/L Potassium 3.7 (3.6-5.2) mmol/L Chloride 97 L (100-108) mmol/L Carbon Dioxide 26 (21-32) mmol/L Anion Gap 16.7 H (5.0-14.0) mmol/L BUN 13 (7-18) mg/dL Creatinine 1.0 (0.6-1.0) mg/dL Est Cr Clr Drug Dosing 38.35 mL/min Estimated GFR (MDRD) 54 L (>60) Glucose 123 H (74-106) mg/dL Calcium 9.4 (8.5-10.1) mg/dL Total Bilirubin 0.3 (0.2-1.0) mg/dL AST 17 (15-37) U/L ALT 19 (12-78) U/L Alkaline Phosphatase 64 (46-116) U/L Troponin I < 0.017 (0.000-0.056) ng/mL Total Protein 7.4 (6.4-8.2) g/dL Albumin 4.2 (3.4-5.0) g/dL Globulin 3.2 (2.3-3.5) g/dL Albumin/Globulin Ratio 1.3 (1.2-2.2) Free T4 (0.76-1.46) ng/dL TSH, Ultra Sensitive 8.194 H (0.358-3.740) uIU/mL 05/15/20 Range/Units 02:12 WBC (4.5-11.0) K/uL RBC (3.30-5.50) M/uL Hgb (12.0-15.0) g/dL Hct (36.0-48.0) % MCV (80-98) fL MCH (27-31) pg MCHC (32-36) % Plt Count (150-400) K/uL Neut % (Auto) (36-66) % Lymph % (Auto) (24-44) % [place] % (Auto) (2-6) % Eos % (Auto) (2-4) % Baso % (Auto) (0-1) % Sodium (140-148) mmol/L Potassium (3.6-5.2) mmol/L Chloride (100-108) mmol/L Carbon Dioxide (21-32) mmol/L Anion Gap (5.0-14.0) mmol/L BUN (7-18) mg/dL Creatinine (0.6-1.0) mg/dL Est Cr Clr Drug Dosing mL/min Estimated GFR (MDRD) (>60) Glucose (74-106) mg/dL Calcium (8.5-10.1) mg/dL Total Bilirubin (0.2-1.0) mg/dL AST (15-37) U/L ALT (12-78) U/L Alkaline Phosphatase (46-116) U/L Troponin I (0.000-0.056) ng/mL Total Protein (6.4-8.2) g/dL Albumin (3.4-5.0) g/dL Globulin (2.3-3.5) g/dL Albumin/Globulin Ratio (1.2-2.2) Free T4 1.21 (0.76-1.46) ng/dL TSH, Ultra Sensitive (0.358-3.740) uIU/mL Med Orders - Current: Current Medications Acetaminophen (Acetaminophen 325 Mg Tab) 650 mg PO Q4H PRN PRN Reason: Pain (Mild 1-3)/fever Aspirin (Aspirin 81 Mg Tab.Ec Ptom) 81 mg PO DAILY [facility] Last Admin: 05/15/20 09:53 Dose: 81 mg Documented by: Diltiazem HCl 100 mg/ Sodium (Chloride) 100 mls @ 5 mls/hr IV TITRATE [facility]; Protocol Last Titration: 05/15/20 03:30 Dose: 0 mg/hr, 0 mls/hr Documented by: Levothyroxine Sodium (Levothyroxine 112 Mcg Tab) 112 mcg PO ACBREAKFAST [facility] Last Admin: 05/15/20 08:05 Dose: 112 mcg Documented by: Magnesium Hydroxide (Magnesium Hydroxide 400 Mg/5 Ml Susp 30 Ml Cup) 30 ml PO Q12H PRN PRN Reason: Constipation Ondansetron HCl (Ondansetron 4 Mg/2 Ml Sdv) 4 mg IV Q6H PRN PRN Reason: Nausea/Vomiting Ondansetron HCl (Ondansetron 4 Mg Tab.Dis) 4 mg PO Q6H PRN PRN Reason: Nausea able to take PO Atenolol 50mg Ptom () 0 each PO BID [facility] Last Admin: 05/15/20 09:53 Dose: 1 each Documented by: Losartan 100mg (Ptom) [address] Metformin 1000mg (Ptom) 0 each PO BIDMEALS [facility] Last Admin: 05/15/20 09:25 Dose: 1,000 each Documented by: Rosuvastatin 5mg (Ptom) 0 each PO BEDTIME [facility] Senna/Docusate Sodium (Docusate Sodium/Sennosides 50-8.6 Mg Tab) 1 tab PO BID PRN PRN Reason: Constipation Sodium Chloride (Sodium Chloride 0.9% 10 Ml Syringe) 10 ml FLUSH ASDIRECTED PRN PRN Reason: Keep Vein Open Last Admin: 05/15/20 03:30 Dose: 10 ml Documented by: Timolol Maleate (Timolol Maleate 0.5% Ophth Soln 5 Ml Bottle) 0 ml EYEBOTH DAILY [facility] Last Admin: 05/15/20 09:54 Dose: Not Given Documented by: Discontinued Medications Diltiazem HCl (Diltiazem 25 Mg/5 Ml Sdv) 16 mg IVPUSH ONETIME ONE Stop: 05/14/20 23:59 Last Admin: 05/15/20 00:08 Dose: 16 mg Documented by:
[2020-05-15] MEDS ORDERED: ROSUVASTATIN 5 MG PO SCH (21:00)
[2020-05-15] MEDS ORDERED: Rosuvastatin 10 MG Tab PO SCH (21:00)
== END 2020-05-15 12:07 | disposition home or self-care (01) ==
LOC: JP.ED 23:25 → JP.ICU 05-15 02:44
PROVIDERS: ADMIT Internal Medicine; ATTEND Internal Medicine
DX: I48.0 Paroxysmal atrial fibrillation (principal); E11.9 Type 2 diabetes mellitus without complications; I10 Essential (primary) hypertension; E78.00 Pure hypercholesterolemia, unspecified; E03.9 Hypothyroidism, unspecified; Z79.899 Other long term (current) drug therapy; Z79.84 Long term (current) use of oral hypoglycemic drugs; Z79.890 Hormone replacement therapy; Z79.82 Long term (current) use of aspirin; Z91.040 Latex allergy status; Z88.8 Allergy status to other drugs, medicaments and biological substances; Z88.1 Allergy status to other antibiotic agents; Z98.890 Other specified postprocedural states
CPT/HCPCS: 36415; 80053; 82962; 84439; 84443; 84484; 85025; 93005; 93306; 96374; 99285-25; A9270-GY; J3490